=== PATIENT | female | born 1970 | race Caucasian/White ===

== ENCOUNTER 2019-05-13 06:43 | Day surgery (SDC) | payer BC ==
[2019-05-13] MEDS ORDERED: MIDAZOLAM HCL 2MG/2ML VIAL IV ONE (06:44)
[2019-05-13] MEDS ORDERED: LIDOCAINE 2% MDV (20MG/ML) 20ML VIAL IV ONE (06:44)
[2019-05-13] MEDS ORDERED: PROPOFOL 10 MG/ML VIAL IV ONE (06:44)
[2019-05-13] MEDS ORDERED: FENTANYL PF 100MCG/2ML VIAL IV ONE (06:44)
[2019-05-13] MEDS ORDERED: RINGERS SOLUTION,LACTATED 1,000 ML IV ONE (08:26)
[2019-05-13] MEDS ORDERED: BUPIVACAINE 0.5% W/EPI MPF 30 ML VIAL SQ ONE (08:34)
[2019-05-13] MEDS ORDERED: DEXAMETHASONE PRESERVATIVE FREE 10MG/ML VIAL SQ ONE (08:34)
[2019-05-13] MEDS ORDERED: LIDOCAINE 1% W/EPI 1:100,000 MDV 20 ML VIAL SQ ONE (08:34)
--- NOTE | 2019-05-15 15:30 | Operative Note ---
DATE OF SURGERY: 05/13/2019 PREOPERATIVE DIAGNOSIS: Right cervical spondylosis without myelopathy. ICD10 code M47.812. OPERATION: Radiofrequency rhizotomy of right cervical facets 3-4, 4-5, 5-6, 6-7. INDICATIONS: This patient presents with a history of pain which is right-sided neck and shoulder. Diagnostics show multilevel spondylosis. A facet series 75% relief. Due to the failure of therapy, success of facet series, patient presents for rhizotomy for more long-term relief. SURGEON: Laron Jain DO ANESTHESIA: Local with sedation. ANESTHESIA PROVIDER: BOOKER Mcginnis PROCEDURE: Intravenous line, vital sign monitoring, IV sedation, prepped and draped in sterile technique. Under imaging, cervical facets on right 3-4, 4-5, 5-6, and 6-7 were marked, infiltrated. A 20-gauge rhizotomy cannula positioned. Stimulation trial was conducted. Rhizotomy burn performed. Local with antiinflammatory into the sites. Topical antibiotic and sterile dressing applied. Will monitor and evaluate. CC: Dr. Hanna GARRETT
== END 2019-05-13 09:22 | disposition home or self-care (01) ==
LOC: SUR 06:43
PROVIDERS: ATTEND Pain Medicine Interventional Pain Medicine
DX: M47.812 Spondylosis without myelopathy or radiculopathy, cervical region (principal); I10 Essential (primary) hypertension; K21.9 Gastro-esophageal reflux disease without esophagitis; G62.9 Polyneuropathy, unspecified
CPT/HCPCS: 81025; J7120